=== PATIENT | male | born 1980 | race Caucasian/White ===

== ENCOUNTER 2020-08-02 17:14 | Emergency (ER) | payer OTHER ==
[~2020-08-02] VITALS: Ht 195.6 cm; Wt 113.9 kg
[2020-08-02 20:22] VITALS: BP 144/97; Ht 195.6 cm; Wt 113.9 kg
== END 2020-08-02 21:11 | disposition home or self-care (01) ==
LOC: ED 17:14
DX: K43.2 Incisional hernia without obstruction or gangrene (principal); Z98.890 Other specified postprocedural states